=== PATIENT | female | born 1950 | race Caucasian/White ===

== ENCOUNTER 2018-01-13 19:17 | Observation (INO) | payer MEDICARE, OTHER ==
[~2018-01-13] VITALS: Ht 162.6 cm; Wt 59.9 kg
--- OUTSIDE RECORDS SUMMARY | 2018-01-13 19:20 | XMS REPORT | Summary of Care ---
Author Organization Unknown Address Unknown Phone Unavailable Encounter [facility](MARLI) [phone] Date(s): 06/19/13 - 07/18/13 [facility] Discharge Disposition: Home Physician Attending: Louis Holcomb DPM Reason for Visit LEFT FOOT/ANKLE SX 03/15/13 Problem List No data available for this section Allergies, Adverse Reactions, Alerts Substance Reaction Severity Status NKDA Active Medications No data available for this section Medications Administered During Your Visit No data available for this section Immunizations No data available for this section
--- OUTSIDE RECORDS SUMMARY | 2018-01-13 19:20 | XMS REPORT | Clinical Summary ---
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 Last Filed Vital Signs Not on file Plan of Treatment Health Maintenance Due Date Last Done Comments BREAST CANCER SCREENING 2000 COLON CANCER SCREENING 2000 SHINGRIX VACCINE (1 of 2) 2000 ZOSTER VACCINE 2010 PNEUMOCOCCAL 09/16/2015 POLYSACCHARIDE VACCINE AGE 65 AND OVER PNEUMOCOCCAL-13 09/16/2015 INFLUENZA VACCINE 09/21/2017 Results Not on fileafter 01/12/2017 Insurance Payer Benefit Subscriber ID Type Phone Address Plan / Group AETNA MEDICARE AETNA xxxxxxxx HMO MEDICARE HMO/PPO [facility] (Home) [place] [address] Advance Directives Patient has advance care planning documents on file. For more information, garcia connor contact: León Freeman [address] [place] [address]
--- OUTSIDE RECORDS SUMMARY | 2018-01-13 19:20 | XMS REPORT | Continuity of Care Document ---
Author Author [facility] Interface Address Unknown Phone Unavailable Problems Problem Status Onset Date Classification Date Reported Comments Source Other abnormal and inconclusive findings on diagnostic imaging of breast 05/18/2017 08/17/2017 [facility]'s Encounter for screening mammogram for malignant neoplasm of breast 05/07/2017 08/08/2017 [facility] Dis[facility] Diagnosis: Chest pain, atypical 11/17/2015 11/20/2015 [facility] Discharge Diagnosis: Lung nodule 11/17/2015 11/20/2015 [facility] ABNORMAL EKG Active 11/16/2015 [facility] [id number],HALLUX INTERPHALANGEAL Active 12/24/2013 [facility] Bunion Active Problem 08/17/2017 [facility]'s,[facility] HTN (<span ID="[id number]">Confirmed</span>) Resolved Problem 08/17/2017 [facility] Hypothyroid Active Problem 08/17/2017 [facility] Encounter for screening for osteoporosis 08/08/2017 [facility] Other specified disorders of bone density and structure, unspecified site 08/08/2017 [facility] Asymptomatic menopausal state 08/08/2017 [facility]'s LEFT FOOT/ANKLE SX 03/15/13 Active [facility] PAIN Active [facility] Medications Medication Details Route Status Patient Instructions Ordering Provider Order Date Source tramadol hydrochloride 50 MG Oral Tablet [Ultram] 50 mg=1 tab, PO, Q4H, PRN pain, X 3 day, # 20 tab, 0 Refill(s) Active 11/17/2015 [facility] Aspirin 324 mg, Route: PO, ONCE, Dosing Weight 56.818, kg, Priority: STAT, Start date: 11/17/15 9:07:00 CDT, Stop date: 11/17/15 9:07:00 CDT Inactive 11/17/2015 [facility] Morphine 2 mg, Route: IVP, ONCE, Dosing Weight 56.818, kg, Priority: STAT, Start date: 11/17/15 9:07:00 CDT, Stop date: 11/17/15 9:07:00 CDT Inactive 11/17/2015 [facility] Saline Flush 0.9% 10 mL, Route: IVP, Drug Form: INJ, Dosing Weight 56.818, kg, PRN, PRN Line Flush, Start date: 11/17/15 9:07:00 CDT, Duration: 30 day, Stop date: 12/17/15 9:06:00 CDTNotes: (Same as: BD Posiflush) Inactive 11/17/2015 [facility] Ondansetron 4 mg, Route: IVP, ONCE, Dosing Weight 56.818, kg, Priority: STAT, Start date: 11/17/15 9:07:00 CDT, Stop date: 11/17/15 9:07:00 CDT Inactive 11/17/2015 [facility] Acetaminophen 650 mg, Route: PO, Drug form: TAB, Q4H, Dosing Weight 56.818, kg, PRN Pain 1-3/Temp > 100.4 F, Start date: 01/30/14 14:05:00, Duration: 30 day, Stop date: 03/01/14 14:04:00 Inactive 01/30/2014 [facility] Ibuprofen 800 mg, Route: PO, Drug form: TAB, Q8H, Dosing Weight 56.818, kg, PRN Pain Score 1-3, Start date: 01/30/14 14:05:00, Duration: 30 day, Stop date: 03/01/14 14:04:00 Inactive 01/30/2014 [facility] Acetaminophen 325 MG / Hydrocodone Bitartrate 10 MG Oral Tablet 1 tab, Route: PO, Dosing Weight 56.818, kg, Q4H, PRN Pain Score 4-6, Start date: 01/30/14 14:05:00, Duration: 30 day, Stop date: 03/01/14 14:04:00 Inactive 01/30/2014 [facility] Naloxone 0.04 mg, 0.1 mL, Route: IVP, Drug form: INJ, Q2MIN, Dosing Weight 56.818, kg, PRN Narcotic Reversal, Start date: 01/30/14 12:55:00, Duration: 8 doses or times, Stop date: Limited # of timesNotes: Same as Narcan Inactive 01/30/2014 [facility] Diphenhydramine 12.5 mg, 0.25 mL, Route: IVP, Drug form: INJ, Q6H, Dosing Weight 56.818, kg, PRN Itching, Start date: 01/30/14 12:55:00, Duration: 30 day, Stop date: 03/01/14 12:54:00Notes: (Same as: Benadryl) Inactive 01/30/2014 [facility] Ondansetron 4 mg, 2 mL, Route: IVP, Drug form: INJ, ONCE, Dosing Weight 56.818, kg, PRN Nausea & Vomiting, Start date: 01/30/14 12:55:00Notes: (Same as: Zofran) Inactive 01/30/2014 [facility] Morphine 2 mg, 0.25 mL, Route: IVP, Drug form: INJ, Q5Min, Dosing Weight 56.818, kg, PRN Pain Score 4-6, Start date: 01/30/14 12:55:00, Duration: 5 doses or times, Stop date: Limited # of timesNotes: (Same as: MORPhine Sulfate) Inactive 01/30/2014 [facility] Hydromorphone 0.5 mg, 0.25 mL, Route: IVP, Drug form: INJ, Q5Min, Dosing Weight 56.818, kg, PRN Pain Score 7-10, Start date: 01/30/14 12:55:00, Duration: 4 doses or times, Stop date: Limited # of timesNotes: (Same as: Dilaudid) Inactive 01/30/2014 [facility] Flumazenil 0.2 mg, 2 mL, Route: IVP, Drug form: INJ, PRN, Dosing Weight 56.818, kg, PRN Benzodiazepine Reversal, Initial dose, Start date: 01/30/14 12:55:00, Duration: 30 day, Stop date: 03/01/14 12:54:00Notes: (Same as: Romazicon) Inactive 01/30/2014 [facility] Hydralazine 10 mg, 0.5 mL, Route: IVP, Drug form: INJ, Q20Min, Dosing Weight 56.818, kg, PRN Elevated BP, Start date: 01/30/14 12:55:00, Duration: 2 doses or times, Stop date: Limited # of timesNotes: (Same as: Apresoline) Push over 5 minutes Inactive 01/30/2014 [facility] Labetalol 10 mg, 2 mL, Route: IVP, Drug form: INJ, Q5Min, Dosing Weight 56.818, kg, PRN Elevated BP, Start date: 01/30/14 12:55:00, Duration: 5 doses or times, Stop date: Limited # of timesNotes: (Same as: Normod yne, Trandate) Push over 2 minutes Give bolus over 2-3 minutes. Inactive 01/30/2014 [facility] Ancef 2 gm, Route: IVPB, ONCE, Dosing Weight 56.818, kg, Start date: 01/30/14 12:54:00, Duration: 1 doses or times, Stop date: 01/30/14 12:54:00 Inactive 01/30/2014 [facility] Lidocaine Hydrochloride 10 MG/ML Injectable Solution 0.5 mL, Route: INTRADERM, Dosing Weight 56.818, kg, ONCALL, Start date: 01/30/14 12:00:00, Duration: 1 doses or times Inactive 01/30/2014 [facility] Calcium Chloride 0.0014 MEQ/ML / Potassium Chloride 0.004 MEQ/ML / Sodium Chloride 0.103 MEQ/ML / Sodium Lactate 0.028 MEQ/ML Injectable Solution 1,000 mL, Rate: 25 ml/hr, Infuse over: 40 hr, Route: IV, Dosing Weight 56.818 kg, Total Volume: 1,000, Start date: 01/30/14 11:17:00, Duration: 30 day, Stop date: 03/01/14 11:16:00 Inactive 01/30/2014 [facility] Vitamin D 0 Refill(s) Active 01/24/2014 [facility] nature thyroid nature thyroid, Refill(s) 0 Active 01/24/2014 [facility] Allergies, Adverse Reactions, Alerts Substance Category Reaction Severity Reaction type Status Date Reported Comments Source Immunizations Immunization Date Given Site Status Last Updated Comments Source Results Order Name Results Value Reference Range Date Interpretation Comments Source Breast Complete Taz US Breast Complete Taz US COMPLETE ULTRASOUND OF BOTH BREASTS AND AXILLA: 05/11/2017 CLINICAL: R92.8 Other Abnormal And Inconclusive Findings On Diagnostic Imaging Of Breast/R92.8 Other Abnormal And Inconclusive Findings On Diagnostic Imaging Of Breast HISTORY: 66 yo female returns for further imaging evaluation of BILATERAL calcifications detected on BASELINE screening mammogram 05/02/17. No personal or family history of breast cancer. No prior breast surgeries or biopsies. Taking HRT. /R92.8 Other Abnormal And Inconclusive Findings On Diagnostic Imaging Of Breast. COMPARISON:Comparison is made to exams dated: 05/02/2017 mammogram and 05/11/2017 ultrasound - [facility]. RIGHT BREAST FINDINGS: The entire RIGHT breast was evaluated including all four quadrants, axillary tail, retroareolar region and axilla. No abnormalities that would be suspicious for malignancy were identified. Scattered subcentimeter cysts were identified. No axillary adenopathy. LEFT BREAST FINDINGS: The entire LEFT breast was evaluated including all four quadrants, axillary tail, retroareolar region and axilla. No abnormalities that would be suspicious for malignancy were identified. Scattered subcentimeter cysts were identified. No axillary adenopathy. IMPRESSION: BENIGN 1. ADDITIONAL IMAGING READ IN CONJUNCTION WITH THE BASELINE SCREENING MAMMOGRAM SHOWED FINDINGS COMPATIBLE WITH BILATERAL FIBROCYSTIC CHANGES. RECOMMENDATION: 1. SINCE THIS WAS A BASELINE, RECOMMEND A PRECAUTIONARY FOLLOW-UP BILATERAL MAMMOGRAM IN SIX MONTHS TO CONFIRM BENIGN IMPRESSION AND ASSESS STABILITY. I personally reviewed the imaging findings and recommendations with the patient. I emphasized to her to practice monthly self-examinations and to return immediately if she should note any concerning changes. Lakisha Connell M.D. sg/:05/13/2017 15:54:04 Data Management Analyst(s): Alie Lyn R.D.M.S, [facility]; Fany Garcia, [facility] letter sent: BI-RADS 3 Ultrasound BI-RADS: 2 Benign 05/11/2017 - - Read by: Lakisha Connell MD Dictated Date/time: 05/13/17 15:54 Electronically Signed by: Lakisha Connell MD 05/13/17 15:[address] [facility] Breast Mammo Diag TAZ incl CAD MA Breast Mammo Diag TAZ incl CAD MA BILATERAL DIGITAL DIAGNOSTIC MAMMOGRAM WITH CAD: 05/11/2017 CLINICAL: R92.8 Other Abnormal And Inconclusive Findings On Diagnostic Imaging Of Breast/R92.8 Other Abnormal And Inconclusive Findings On Diagnostic Imaging Of Breast HISTORY: 66 yo female returns for further imaging evaluation of BILATERAL calcifications detected on BASELINE screening mammogram 05/02/17. No personal or family history of breast cancer. No prior breast surgeries or biopsies. Taking HRT. /R92.8 Other Abnormal And Inconclusive Findings On Diagnostic Imaging Of Breast. Current study was evaluated with a Computer Aided Detection (CAD) system. COMPARISON:Comparison is made to exams dated: 05/02/2017 mammogram and 05/11/2017 ultrasound - [facility]. TECHNIQUE: Mammographic views were obtained using digital acquisition. Current study was also evaluated with a Computer Aided Detection (CAD) system. FINDINGS: The tissue of both breasts is extremely dense. This may lower the sensitivity of mammography. Bilateral magnification views and ML views show the majority of the bilateral diffuse calcifications to layer consistent with fibrocystic change. No significant masses or other findings are seen in either breast. IMPRESSION: PROBABLY BENIGN PLEASE SEE SAME DAY ULTRASOUND REPORT. Lakisha Connell M.D. sg/:05/13/2017 15:54:04 Data Management Analyst(s): Alie Lyn R.D.M.S, [facility]; Fany Garcia, [facility] letter sent: BI-RADS 3 Mammogram BI-RADS: 3 Probably benign 05/11/2017 - - Read by: Lakisha Connell MD Dictated Date/time: 05/13/17 15:54 Electronically Signed by: Lakisha Connell MD 05/13/17 15:[address] [facility] Bone Density DXA [employer] MA Bone Density DXA [employer] MA BONE DENSITY ASSESSMENT: 05/02/2017 CLINICAL DATA: Post menopausal. Taking estrogen. Taking vitamin D supplements. Encounter For Screening For Osteoporosis/Z13.820 RISK FACTORS: race. FINDINGS: Bone density evaluation was performed 05/02/2017 on the right femur neck using a Hologic unit. The BMD average for the exam is 0.657 g/cm2. The T-score is - 1.70 and the Z-score is -0.10. These values indicate 98.0% for age-matched controls. This matches the World Health Organization's criteria for osteopenia and places the patient at a medium risk for fracture. An additional bone density evaluation was performed 05/02/2017 on the left femur neck using a Hologic unit. The BMD average for the exam is 0.625 g/cm2. The T- score is -2.00 and the Z-score is -0.40. These values indicate 93.0% for age- matched controls. This matches the World Health Organization's criteria for osteopenia and places the patient at a medium risk for fracture. An additional bone density evaluation was performed 05/02/2017 on the right hip using a Hologic unit. The BMD average for the exam is 0.755 g/cm2. The T-score is -1.50 and the Z-score is -0.20. These values indicate 97.0% for age-matched controls. This matches the World Health Organization's criteria for osteopenia and places the patient at a medium risk for fracture. An additional bone density evaluation was performed 05/02/2017 on the left hip using a Hologic unit. The BMD average for the exam is 0.754 g/cm2. The T-score is -1.50 and the Z-score is -0.20. These values indicate 96.0% for age-matched controls. This matches the World Health Organization's criteria for osteopenia and places the patient at a medium risk for fracture. An additional bone density evaluation was performed 05/02/2017 on the AP L1-L4 region of spine using a Hologic unit. The BMD average for the exam is 0.956 g/cm2. The T-score is -0.80 and the Z-score is 1.00. These values indicate 114.0% for age-matched controls. This matches the World Health Organization's criteria for normal bone density and places the patient within normal limits of fracture risk. IMPRESSION: OSTEOPENIA Patient is at medium risk for fracture. This exam was interpreted at [id number] for [facility]. Lakisha solano/mary:05/02/2017 17:52:17 Data Management Analyst(s): Sierra MCLEAN(R)(M), [facility] 05/02/2017 - - Read by: Lakisha Connell MD Dictated Date/time: 05/02/17 17:52 Electronically Signed by: Lakisha Connell MD 05/02/17 17:[address] [facility] Breast Mammo Scrn TAZ incl CAD MA Breast Mammo Scrn TAZ incl CAD MA BILATERAL FIRST EVER DIGITAL SCREENING MAMMOGRAM WITH CAD: 05/02/2017 CLINICAL: Routine/Screen. Current study was evaluated with a Computer Aided Detection (CAD) system. COMPARISON:No prior exams were available for comparison. BASELINE TECHNIQUE: Mammographic views were obtained using digital acquisition. Current study was also evaluated with a Computer Aided Detection (CAD) system. FINDINGS: The tissue of both breasts is extremely dense. This may lower the sensitivity of mammography. There are diffuse calcifications in both breasts. There are benign scattered densities in both breasts. No significant masses, calcifications, or other findings are seen in either breast. IMPRESSION: INCOMPLETE: NEEDS ADDITIONAL IMAGING EVALUATION The diffuse calcifications in both breasts are indeterminate. Bilateral mammographic additional views and bilateral ultrasound are recommended ... bilateral CC mag, bilater ML mag. This exam was interpreted at [id number] for [facility]. Navarro Healy M.D. mt/:05/04/2017 16:49:47 Data Management Analyst(s): Sierra Nicole RT(R)(M), [facility] letter sent: BI-RADS 0 Mammogram BI-RADS: 0 Indeterminate 05/02/2017 - - Read by: Navarro Healy MD Dictated Date/time: 05/04/17 16:49 Electronically Signed by: Navarro Healy MD 05/04/17 16:[address] [facility] CARDIAC ENZYMES Total CK 50 unit/L 12 - 191 11/17/2015 [facility] CARDIAC ENZYMES CK MB 1.3 ng/mL 0.5 - 3.6 11/17/2015 [facility] CARDIAC ENZYMES Troponin-I null 0.00 - 0.40 11/17/2015 [facility] CARDIAC ENZYMES BNP 55 pg/mL <=100 pg/mL 11/17/2015 [facility] CARDIAC ENZYMES CK MB Index 2.6 0.0 - 2.5 11/17/2015 [facility] CHEM PANEL eGFR 88 mL/min/1.73m2 11/17/2015 Result Comment: The eGFR is calculated using the CKD-EPI formula. In most young, healthy individuals the eGFR will be >90 mL/min/1.73m2. The eGFR declines with age. An eGFR of 60-89 may be normal in some populations, particularly the elderly, for whom the CKD-EPI formula has not been extensively validated. Use of the eGFR is not recommended in the following populations: Individuals with unstable creatinine concentrations, including patients and those with serious co-morbid conditions. Patients with extremes in muscle mass or diet. The data above are obtained from the National Kidney Disease Education Program (NKDEP) which additionally recommends that when the eGFR is used in patients with extremes of body mass index for purposes of drug dosing, the eGFR should be multiplied by the estimated BMI. [facility] CHEM PANEL A/G Ratio 1.0 0.7 - 1.6 11/17/2015 [facility] CHEM PANEL Bili Total 0.6 mg/dL 0.2 - 1.3 11/17/2015 [facility] CHEM PANEL AGAP 8.9 meq/L 10.0 - 20.0 11/17/2015 [facility] CHEM PANEL B/C Ratio 15 6 - 25 11/17/2015 [facility] CHEM PANEL Globulin 3.2 g/dL 2.7 - 4.2 11/17/2015 [facility] CHEM PANEL ALT 19 unit/L 0 - 65 11/17/2015 [facility] CHEM PANEL AST 12 unit/L 0 - 37 11/17/2015 [facility] CHEM PANEL Alk Phos 48 unit/L 39 - 136 11/17/2015 [facility] CHEM PANEL Potassium Lvl 3.9 meq/L 3.5 - 5.1 11/17/2015 [facility] CHEM PANEL Albumin Lvl 3.1 g/dL 3.5 - 5.0 11/17/2015 [facility] CHEM PANEL Total Protein 6.3 g/dL 6.4 - 8.4 11/17/2015 [facility] CHEM PANEL Calcium Lvl 8.4 mg/dL 8.5 - 10.5 11/17/2015 [facility] CHEM PANEL Chloride Lvl 106 meq/L 95 - 109 11/17/2015 [facility] CHEM PANEL CO2 27 meq/L 24 - 32 11/17/2015 [facility] CHEM PANEL Creatinine Lvl 0.72 mg/dL 0.50 - 1.40 11/17/2015 [facility] CHEM PANEL Sodium Lvl 138 meq/L 135 - 145 11/17/2015 [facility] CHEM PANEL Glucose Lvl 91 mg/dL 70 - 99 11/17/2015 [facility] CHEM PANEL BUN 11 mg/dL 7 - 22 11/17/2015 [facility] MCHC 34.7 g/dL 32.0 - 36.0 11/17/2015 [facility] RDW 13.1 % 11.5 - 14.5 11/17/2015 [facility] MCH 31.0 pg 27.0 - 31.0 11/17/2015 [facility] Platelet 191 K/CMM 133 - 450 11/17/2015 [facility] Hct 36.1 % 36.0 - 48.0 11/17/2015 [facility] MCV 89.3 fL 80.0 - 98.0 11/17/2015 [facility] MPV 9.3 fL 7.4 - 10.4 11/17/2015 [facility] WBC 9.9 K/CMM 3.7 - 10.4 11/17/2015 [facility] RBC 4.05 M/CMM 4.20 - 5.40 11/17/2015 [facility] Hgb 12.5 g/dL 12.0 - 16.0 11/17/2015 [facility] Lymphocytes # 1.6 K/CMM 1.0 - 5.5 11/17/2015 [facility] Monocytes # 0.9 K/CMM 0.0 - 0.8 11/17/2015 [facility] Segs-Bands # 7.2 K/CMM 1.5 - 8.1 11/17/2015 [facility] Basophils # 0.1 K/CMM 0.0 - 0.2 11/17/2015 [facility] Lymphocytes 16.4 % 20.0 - 40.0 11/17/2015 [facility] HEMATOLOGY Eosinophils 0.2 % 0.0 - 4.0 11/17/2015 [facility] HEMATOLOGY Basophils 0.6 % 0.0 - 1.0 11/17/2015 [facility] Monocytes 9.4 % 2.0 - 12.0 11/17/2015 [facility] Segs 73.4 % 45.0 - 75.0 11/17/2015 [facility] Chest 1view DX Chest 1view DX Chest 1view DX CLINICAL HISTORY:Chest pain COMPARISON: 01/16/2006 FINDINGS: Limited AP portable study. SUPPORT DEVICES: none LUNGS: Lungs are reasonably well inflated. Question small nodule right lung base medially approximately 13 mm in size. No opacities or any significant effusion. No pneumothorax is evident. CARDIOVASCULAR: Cardiac silhouette size is within normal limits. No pulmonary edema. MEDIASTINUM/TSERING: Trachea is midline. No contour abnormality is noted. BONE AND SOFT TISSUES: No significant abnormality is evident. Multiple EKG leads and other wires project over the patient's chest. IMPRESSION: No acute abnormality is noted in the chest. Question small nodule medial aspect of right lung base. Nonemergent contrast CT of chest and pulmonary follow-up is recommended. SL: [id number] 11/17/2015 - - Read by: Arnulfo Garcia MD Dictated Date/time: 11/17/15 09:41 Electronically Signed by: Arnulfo Garcia MD 11/17/15 09:42 FINAL REPORT [facility] [employer] [facility] eGFR 92 mL/min/1.73m2 01/24/2014 1Result Comment: The eGFR is calculated using the CKD-EPI formula. In most young, healthy individuals the eGFR will be >90 mL/min/1.73m2. The eGFR declines with age. An eGFR of 60-89 may be normal in some populations, particularly the elderly, for whom the CKD-EPI formula has not been extensively validated. Use of the eGFR is not recommended in the following populations: Individuals with unstable creatinine concentrations, including patients and those with serious co-morbid conditions. Patients with extremes in muscle mass or diet. The data above are obtained from the National Kidney Disease Education Program (NKDEP) which additionally recommends that when the eGFR is used in patients with extremes of body mass index for purposes of drug dosing, the eGFR should be multiplied by the estimated BMI. [facility] CHEM PANEL Creatinine Lvl 0.7 mg/dL 0.5 - 1.4 01/24/2014 [facility] CHEM PANEL Calcium Lvl 9.1 mg/dL 8.5 - 10.5 01/24/2014 [facility] CHEM PANEL Sodium Lvl 140 meq/L 135 - 145 01/24/2014 [facility] CHEM PANEL Chloride Lvl 106 meq/L 95 - 109 01/24/2014 [facility] CHEM PANEL Potassium Lvl 3.9 meq/L 3.5 - 5.1 01/24/2014 [facility] CHEM PANEL BUN 13 mg/dL 7 - 22 01/24/2014 [facility] CHEM PANEL Glucose Lvl 82 mg/dL 70 - 99 01/24/2014 2Interpretive Data: Adult reference range values reflect the clinical guidelines of the [place] [employer]. [facility] CHEM PANEL CO2 28 meq/L 24 - 32 01/24/2014 [facility] CHEM PANEL AGAP 9.9 meq/L 10.0 - 20.0 01/24/2014 [facility] HEMATOLOGY RDW 12.9 % 11.5 - 14.5 01/24/2014 [facility] HEMATOLOGY MCHC 34.3 g/dL 32.0 - 36.0 01/24/[address] [facility] MCH 31.0 pg 27.0 - 31.0 01/24/2014 [facility] HEMATOLOGY MCV 90.6 fL 80.0 - 98.0 01/24/2014 [facility] HEMATOLOGY MPV 9.0 fL 7.4 - 10.4 01/24/2014 [facility] HEMATOLOGY Platelet 222 K/CMM 133 - 450 01/24/2014 [facility] HEMATOLOGY WBC 8.1 K/CMM 3.7 - 10.4 01/24/2014 [facility] HEMATOLOGY Hgb 12.8 g/dL 12.0 - 16.0 01/24/2014 [facility] HEMATOLOGY Hct 37.4 % 36.0 - 48.0 01/24/2014 [facility] HEMATOLOGY RBC 4.13 M/CMM 4.20 - 5.40 01/24/2014 [facility] HEMATOLOGY Basophils # 0.0 K/CMM 0.0 - 0.2 01/24/2014 [facility] HEMATOLOGY Eosinophils # 0.1 K/CMM 0.0 - 0.5 01/24/2014 [facility] HEMATOLOGY Lymphocytes # 2.3 K/CMM 1.0 - 5.5 01/24/2014 [facility] HEMATOLOGY Monocytes # 0.5 K/CMM 0.0 - 0.8 01/24/2014 [facility] HEMATOLOGY Basophils 0.3 % 0.0 - 1.0 01/24/2014 [facility] HEMATOLOGY Eosinophils 0.6 % 0.0 - 4.0 01/24/2014 [facility] HEMATOLOGY Segs-Bands # 5.3 K/CMM 1.5 - 8.1 01/24/2014 [facility] HEMATOLOGY Monocytes 5.9 % 2.0 - 12.0 01/24/2014 [facility] HEMATOLOGY Lymphocytes 27.9 % 20.0 - 40.0 01/24/2014 [facility] HEMATOLOGY Segs 65.3 % 45.0 - 75.0 01/24/2014 [facility] Vital Signs Vital Sign Value Date Comments Source Systolic (mm Hg) 123 11/17/2015 [facility] Diastolic (mm Hg) 73 11/17/2015 [facility] Temperature Oral (F) 97.7 F 11/17/2015 [facility] Respitory Rate 13 11/17/2015 [facility] Systolic (mm Hg) 118 11/17/2015 [facility] Diastolic (mm Hg) 82 11/17/2015 [facility] Respitory Rate 16 11/17/2015 [facility] BMI Calculated 21.16 11/17/2015 [facility] Weight 55.909 11/17/2015 [facility] Height 162.56 cm 11/17/2015 [facility] Temperature Oral (F) 97.8 F 11/17/2015 [facility] Heart Rate 85 11/17/2015 [facility] Respitory Rate 18 11/17/2015 [facility] Systolic (mm Hg) 110 11/17/2015 [facility] Diastolic (mm Hg) 67 11/17/2015 [facility] Heart Rate 60 01/30/2014 [facility] Diastolic (mm Hg) 88 01/30/2014 [facility] Respitory Rate 16 01/30/2014 [facility] Systolic (mm Hg) 149 01/30/2014 [facility] Diastolic (mm Hg) 82 01/30/2014 [facility] Respitory Rate 18 01/30/2014 [facility] Heart Rate 85 01/30/2014 [facility] Systolic (mm Hg) 130 01/30/2014 [facility] Respitory Rate 18 01/30/2014 [facility] Diastolic (mm Hg) 79 01/30/2014 [facility] Systolic (mm Hg) 138 01/30/2014 [facility] Heart Rate 93 01/30/2014 [facility] Temperature Oral (F) 98.0 F 01/30/2014 [facility] Height 162.56 cm 01/24/2014 [facility] BMI Calculated 21.5 01/24/2014 [facility] Weight 56.818 01/24/2014 [facility] Encounters Location Location Details Encounter Type Encounter Number Reason For Visit Attending Provider ADM Date DC Date Status Source [facility] OP Therapy Patients [id number] Louis Holcomb 06/19/2013 07/19/2013 [id number] [facility]2013 08/18/2013 [facility] Day [facility] [id number] [facility] 01/30/2014 01/30/2014 [facility] [id number] Carmen Healy 11/17/2015 11/17/2015 [facility] Outpatient Imaging - [facility] [id number] Germania Chowdhurytodex 05/02/2017 05/03/2017 [facility] Outpatient Imaging - [facility] [id number] Germania Chowdhurytodex 05/11/2017 05/12/2017 [facility] Procedures Procedure Code Date Perfomer Comments Source Hysterectomy [id number] 02/21/2011 [facility] Hysterectomy [id number] 02/21/2011 [facility] Hysterectomy [id number] 02/21/2011 [facility] Maxillofacial bone operation [id number] 02/21/1995 [facility] Maxillofacial bone operation [id number] 02/21/1995 [facility] Maxillofacial bone operation [id number] 02/21/1995 [facility] Tonsillectomy [id number] 02/21/1955 [facility] Tonsillectomy [id number] 02/21/1955 [facility] Tonsillectomy [id number] 02/21/1955 [facility] Foot joint operations [id number] [facility] ORIF - Open reduction and internal fixation of fracture [id number] [facility] Foot joint operations [id number] [facility] ORIF - Open reduction and internal fixation of fracture [id number] [facility] Foot joint operations [id number] [facility] ORIF - Open reduction and internal fixation of fracture [id number] [facility]
--- OUTSIDE RECORDS SUMMARY | 2018-01-13 19:20 | XMS REPORT | Summary of Care ---
Author Organization Unknown Address Unknown Phone Unavailable Encounter HQ aPblo_reji(MARLI) [id number] Date(s): 01/30/14 - 01/30/14 [facility] [address] Discharge Disposition: Home Physician Attending: Louis Holcomb DPM Physician_Referring: Louis Holcomb DPM Reason for Visit [id number],HALLUX INTERPHALANGEAL BILATERAL FEET Vital Signs 1 2 3 Most recent to oldest [Reference Range]: 162.56 cm (01/24/14 3:20 PM) Height 98.0 DegF (01/30/14 10:45 AM) Temperature Oral [96.4-99.1 DegF] 149 mmHg *HI* (01/30/14 3:15 PM) 130 mmHg (01/30/14 2:45 PM) 138 mmHg (01/30/14 2:30 PM) Systolic Blood Pressure [90-140 mmHg] 88 mmHg (01/30/14 3:15 PM) 82 mmHg (01/30/14 2:45 PM) 79 mmHg (01/30/14 2:30 PM) Diastolic Blood Pressure [60-90 mmHg] 16 BRMIN (01/30/14 3:15 PM) 18 BRMIN (01/30/14 2:45 PM) 18 BRMIN (01/30/14 2:30 PM) Respiratory Rate [14-20 BRMIN] 60 bpm (01/30/14 3:15 PM) 85 bpm (01/30/14 2:45 PM) 93 bpm (01/30/14 1:45 PM) Peripheral Pulse Rate [60-100 bpm] 56.818 kg (01/24/14 3:20 PM) Weight 21.5 m2 (01/24/14 3:20 PM) Body Mass Index Problem List Condition Effective Dates Status Health Status Informant Bunion(Confirmed) Active Hypothyroid(Confirme Active d) Allergies, Adverse Reactions, Alerts Substance Reaction Severity Status NKDA Active Medications acetaminophen 650 mg, Route: PO, Drug form: TAB, Q4H, Dosing Weight 56.818, kg, PRN Pain 1-3/T emp > 100.4 F, Start date: 01/30/14 14:05:00, Duration: 30 day, Stop date: 03/01/14 14:04:00 Start Date: 01/30/14 Stop Date: 01/30/14 Status: Discontinued acetaminophen-hydrocodone 325 mg-10 mg oral tablet 1 tab, Route: PO, Dosing Weight 56.818, kg, Q4H, PRN Pain Score 4-6, Start date: 01/30/14 14:05:00, Duration: 30 day, Stop date: 03/01/14 14:04:00 Start Date: 01/30/14 Stop Date: 01/30/14 Status: Discontinued Ancef 2 gm, Route: IVPB, ONCE, Dosing Weight 56.818, kg, Start date: 01/30/14 12:54:00 , Duration: 1 doses or times, Stop date: 01/30/14 12:54:00 Start Date: 01/30/14 Stop Date: 01/30/14 Status: Completed diphenhydrAMINE 12.5 mg, 0.25 mL, Route: IVP, Drug form: INJ, Q6H, Dosing Weight 56.818, kg, PRN Itching, Start date: 01/30/14 12:55:00, Duration: 30 day, Stop date: 03/01/14 1 2:54:00 Notes: (Same as: Benadryl) Start Date: 01/30/14 Stop Date: 01/30/14 Status: Discontinued flumazenil 0.2 mg, 2 mL, Route: IVP, Drug form: INJ, PRN, Dosing Weight 56.818, kg, PRN Anand zodiazepine Reversal, Initial dose, Start date: 01/30/14 12:55:00, Duration: 30 day, Stop date: 03/01/14 12:54:00 Notes: (Same as: Romazicon) Start Date: 01/30/14 Stop Date: 01/30/14 Status: Discontinued hydrALAZINE 10 mg, 0.5 mL, Route: IVP, Drug form: INJ, Q20Min, Dosing Weight 56.818, kg, PRN Elevated BP, Start date: 01/30/14 12:55:00, Duration: 2 doses or times, Stop da te: Limited # of times Notes: (Same as: Apresoline)Push over 5 minutes Start Date: 01/30/14 Stop Date: 01/30/14 Status: Discontinued hydromorphone 0.5 mg, 0.25 mL, Route: IVP, Drug form: INJ, Q5Min, Dosing Weight 56.818, kg, CO N Pain Score 7-10, Start date: 01/30/14 12:55:00, Duration: 4 doses or times, St op date: Limited # of times Notes: (Same as: Dilaudid) Start Date: 01/30/14 Stop Date: 01/30/14 Status: Discontinued ibuprofen 800 mg, Route: PO, Drug form: TAB, Q8H, Dosing Weight 56.818, kg, PRN Pain Score 1-3, Start date: 01/30/14 14:05:00, Duration: 30 day, Stop date: 03/01/14 14:04 :00 Start Date: 01/30/14 Stop Date: 01/30/14 Status: Discontinued labetalol 10 mg, 2 mL, Route: IVP, Drug form: INJ, Q5Min, Dosing Weight 56.818, kg, PRN El evated BP, Start date: 01/30/14 12:55:00, Duration: 5 doses or times, Stop date: Limited # of times Notes: (Same as: Normodyne, Trandate)Push over 2 minutes Give bolus over 2-3 mi nutes. Start Date: 01/30/14 Stop Date: 01/30/14 Status: Discontinued Lactated Ringers Injection IV 1,000 mL 1,000 mL, Rate: 25 ml/hr, Infuse over: 40 hr, Route: IV, Dosing Weight 56.818 kg , Total Volume: 1,000, Start date: 01/30/14 11:17:00, Duration: 30 day, Stop jayda e: 03/01/14 11:16:00 Start Date: 01/30/14 Stop Date: 01/30/14 Status: Discontinued lidocaine 1% 0.5 mL, Route: INTRADERM, Dosing Weight 56.818, kg, ONCALL, Start date: 01/30/14 12:00:00, Duration: 1 doses or times Start Date: 01/30/14 Stop Date: 01/30/14 Status: Completed morphine Sulfate 2 mg, 0.25 mL, Route: IVP, Drug form: INJ, Q5Min, Dosing Weight 56.818, kg, PRN Pain Score 4-6, Start date: 01/30/14 12:55:00, Duration: 5 doses or times, Stop date: Limited # of times Notes: (Same as: MORPhine Sulfate) Start Date: 01/30/14 Stop Date: 01/30/14 Status: Discontinued naloxone 0.04 mg, 0.1 mL, Route: IVP, Drug form: INJ, Q2MIN, Dosing Weight 56.818, kg, CO N Narcotic Reversal, Start date: 01/30/14 12:55:00, Duration: 8 doses or times, Stop date: Limited # of times Notes: Same as Narcan Start Date: 01/30/14 Stop Date: 01/30/14 Status: Discontinued nature thyroid nature thyroid, Refill(s) 0 Start Date: 01/24/14 Status: Ordered ondansetron 4 mg, 2 mL, Route: IVP, Drug form: INJ, ONCE, Dosing Weight 56.818, kg, PRN Naus ea & Vomiting, Start date: 01/30/14 12:55:00 Notes: (Same as: Zofran) Start Date: 01/30/14 Stop Date: 01/30/14 Status: Discontinued Vitamin D 0 Refill(s) Start Date: 01/24/14 Status: Ordered Results ELECTROLYTES Most recent to 1 oldest [Reference Range]: Sodium Lvl [135-145 140 mEq/L mEq/L] (01/24/14 3:52 PM) Potassium Lvl 3.9 mEq/L [3.5-5.1 mEq/L] (01/24/14 3:52 PM) Chloride Lvl [95-109 106 mEq/L mEq/L] (01/24/14 3:52 PM) CO2 [24-32 mEq/L] 28 mEq/L (01/24/14 3:52 PM) AGAP [10.0-20.0 9.9 mEq/L mEq/L] *LOW* (01/24/14 3:52 PM) CHEM PANEL Most recent to 1 oldest [Reference Range]: Creatinine Lvl 0.7 mg/dL [0.5-1.4 mg/dL] (01/24/14 3:52 PM) eGFR 92 mL/min/1.73m2 1 *NA* (01/24/14 3:52 PM) BUN [7-22 mg/dL] 13 mg/dL (01/24/14 3:52 PM) Glucose Lvl [70-99 82 mg/dL 2 mg/dL] (01/24/14 3:52 PM) Calcium Lvl 9.1 mg/dL [8.5-10.5 mg/dL] (01/24/14 3:52 PM) 1Result Comment: The eGFR is calculated using [...] from the National Kidney Disease Education Program ( NKDEP) which additionally recommends that when the eGFR is used in patients with extremes of body mass index for purposes of drug dosing, the eGFR should be mul tiplied by the estimated BMI. 2Interpretive Data: Adult reference range values reflect the clinical guidelines of the [place] [employer]. HEMATOLOGY Most recent to 1 oldest [Reference Range]: WBC [3.7-10.4 K/CMM] 8.1 K/CMM (01/24/14 3:52 PM) RBC [4.20-5.40 4.13 M/CMM M/CMM] *LOW* (01/24/14 3:52 PM) Hgb [12.0-16.0 g/dL] 12.8 g/dL (01/24/14 3:52 PM) Hct [36.0-48.0 %] 37.4 % (01/24/14 3:52 PM) MCV [80.0-98.0 fL] 90.6 fL (01/24/14 3:52 PM) MCH [27.0-31.0 pg] 31.0 pg (01/24/14 3:52 PM) MCHC [32.0-36.0 34.3 g/dL g/dL] (01/24/14 3:52 PM) RDW [11.5-14.5 %] 12.9 % (01/24/14 3:52 PM) Platelet [133-450 222 K/CMM K/CMM] (01/24/14 3:52 PM) MPV [7.4-10.4 fL] 9.0 fL (01/24/14 3:52 PM) Segs [45.0-75.0 %] 65.3 % (01/24/14 3:52 PM) Lymphocytes 27.9 % [20.0-40.0 %] (01/24/14 3:52 PM) Monocytes [2.0-12.0 5.9 % %] (01/24/14 3:52 PM) Eosinophils [0.0-4.0 0.6 % %] (01/24/14 3:52 PM) Basophils [0.0-1.0 0.3 % %] (01/24/14 3:52 PM) Segs-Bands # 5.3 K/CMM [1.5-8.1 K/CMM] (01/24/14 3:52 PM) Lymphocytes # 2.3 K/CMM [1.0-5.5 K/CMM] (01/24/14 3:52 PM) Monocytes # [0.0-0.8 0.5 K/CMM K/CMM] (01/24/14 3:52 PM) Eosinophils # 0.1 K/CMM [0.0-0.5 K/CMM] (01/24/14 3:52 PM) Basophils # [0.0-0.2 0.0 K/CMM K/CMM] (01/24/14 3:52 PM) Medications Administered During Your Visit No data available for this section Immunizations No data available for this section Procedures Procedure Type Body Site Date of Procedure Related Diagnosis Foot joint operations Hysterectomy 2012 Maxillofacial bone 1996 operation ORIF - Open reduction and internal fixation of fracture Tonsillectomy 1955 Social History Social History Type Response Smoking Status Never smoker, Exposure to Tobacco Smoke None, Cigarette Smoking Last 365 Days No, Reg Smoking Cessation Counseling No
--- OUTSIDE RECORDS SUMMARY | 2018-01-13 19:20 | XMS REPORT | Summary of Care ---
Author Organization Unknown Address Unknown Phone Unavailable Encounter HQ Catier_reji(MARLI) [id number] Date(s): 07/19/13 - 08/17/13 [facility] Discharge Disposition: Home Physician Attending: Louis Holcomb DPM Reason for Visit PAIN Problem List No data available for this section Allergies, Adverse Reactions, Alerts Substance Reaction Severity Status NKDA Active Medications No data available for this section Medications Administered During Your Visit No data available for this section Immunizations No data available for this section
--- OUTSIDE RECORDS SUMMARY | 2018-01-13 19:21 | XMS REPORT | Summary of Care ---
Author Author [facility] Address Unknown Phone Unavailable Encounter HQ Francisca(FIN) [id number] Date(s): 05/02/17 - 05/02/17 [facility] [address] [place] [phone] Encounter Diagnosis Encounter for screening mammogram for malignant neoplasm of breast (Final) - 05/06/17 Encounter for screening for osteoporosis (Final) - Other specified disorders of bone density and structure, unspecified site (Final) - Asymptomatic menopausal state (Final) - Discharge Disposition: Home or Self Care Attending Physician: Germania Tenorio MD Vital Signs No data available for this section Problem List Condition Effective Dates Status Health Status Informant Bunion(Confirmed) Active HTN Resolved (hypertension)(Confi rmed) Hypothyroid(Confirme Active d) Allergies, Adverse Reactions, Alerts Substance Reaction Severity Status NKDA Active Medications No data available for this section Results No data available for this section Immunizations No data available for this section Procedures Procedure Date Related Diagnosis Body Site Status Hysterectomy 2011 Completed Maxillofacial bone operation 1995 Completed Tonsillectomy 1955 Completed Foot joint operations Completed ORIF - Open reduction and internal fixation Completed of fracture Social History Social History Type Response Smoking Status Never smoker; Exposure to Tobacco Smoke None; Cigarette Smoking Last 365 Days No; Reg Smoking Cessation Counseling No entered on: 11/17/15 Assessment and Plan No data available for this section
--- OUTSIDE RECORDS SUMMARY | 2018-01-13 19:21 | XMS REPORT | Summary of Care ---
Author Author [facility] Organization [facility] Address Unknown Phone Unavailable Encounter ALANNAH Espinosa(MARLI) [id number] Date(s): 11/17/15 - 11/17/15 [facility] [address] [place] [address]- Discharge Diagnosis: Chest pain, atypical Discharge Diagnosis: Lung nodule Discharge Disposition: Home or Self Care Attending Physician: Carmen Healy MD Vital Signs 1 2 3 Most recent to oldest [Reference Range]: 162.56 cm (11/17/15 9:05 AM) Height 97.7 DegF (11/17/15 11:05 AM) 97.8 DegF (11/17/15 9:05 AM) Temperature Oral [96.4-99.1 DegF] 123/73 mmHg (11/17/15 11:05 AM) 118/82 mmHg (11/17/15 10:20 AM) 110/67 mmHg (11/17/15 9:05 AM) Blood Pressure [90-140/60-90 mmHg] 13 BRMIN *LOW* (11/17/15 11:05 AM) 16 BRMIN (11/17/15 10:20 AM) 18 BRMIN (11/17/15 9:05 AM) Respiratory Rate [14-20 BRMIN] 85 bpm (11/17/15 9:05 AM) Peripheral Pulse Rate [60-100 bpm] 55.909 kg (11/17/15 9:05 AM) Weight 21.16 m2 (11/17/15 9:05 AM) Body Mass Index Problem List Condition Effective Dates Status Health Status Informant Bunion(Confirmed) Active HTN Resolved (hypertension)(Confi rmed) Hypothyroid(Confirme Active d) Allergies, Adverse Reactions, Alerts Substance Reaction Severity Status NKDA Active Medications aspirin 324 mg, Route: PO, ONCE, Dosing Weight 56.818, kg, Priority: STAT, Start date: 0 11/17/15 9:07:00 CDT, Stop date: 11/17/15 9:07:00 CDT Start Date: 11/17/15 Stop Date: 11/17/15 Status: Completed morphine Sulfate 2 mg, Route: IVP, ONCE, Dosing Weight 56.818, kg, Priority: STAT, Start date: 9:07:00 CDT, Stop date: 11/17/15 9:07:00 CDT Start Date: 11/17/15 Stop Date: 11/17/15 Status: Completed ondansetron 4 mg, Route: IVP, ONCE, Dosing Weight 56.818, kg, Priority: STAT, Start date: 9:07:00 CDT, Stop date: 11/17/15 9:07:00 CDT Start Date: 11/17/15 Stop Date: 11/17/15 Status: Completed Saline Flush 0.9% 10 mL, Route: IVP, Drug Form: INJ, Dosing Weight 56.818, kg, PRN, PRN Line Flush , Start date: 11/17/15 9:07:00 CDT, Duration: 30 day, Stop date: 12/17/15 9:06:0 0 CDT Notes: (Same as: BD Posiflush) Start Date: 11/17/15 Stop Date: 11/17/15 Status: Discontinued Ultram 50 mg oral tablet 50 mg=1 tab, PO, Q4H, PRN pain, X 3 day, # 20 tab, 0 Refill(s) Start Date: 11/17/15 Stop Date: 11/20/15 Status: Ordered Results ELECTROLYTES Most recent to 1 oldest [Reference Range]: Sodium Lvl [135-145 138 mEq/L mEq/L] (11/17/15 9:15 AM) Potassium Lvl 3.9 mEq/L [3.5-5.1 mEq/L] (11/17/15 9:15 AM) Chloride Lvl [95-109 106 mEq/L mEq/L] (11/17/15 9:15 AM) CO2 [24-32 mEq/L] 27 mEq/L (11/17/15 9:15 AM) AGAP [10.0-20.0 8.9 mEq/L mEq/L] *LOW* (11/17/15 9:15 AM) CHEM PANEL Most recent to 1 oldest [Reference Range]: Creatinine Lvl 0.72 mg/dL [0.50-1.40 mg/dL] (11/17/15 9:15 AM) eGFR 88 mL/min/1.73m2 1 *NA* (11/17/15 9:15 AM) BUN [7-22 mg/dL] 11 mg/dL (11/17/15 9:15 AM) B/C Ratio [6-25] 15 (11/17/15 9:15 AM) Glucose Lvl [70-99 91 mg/dL mg/dL] (11/17/15 9:15 AM) Total Protein 6.3 g/dL [6.4-8.4 g/dL] *LOW* (11/17/15 9:15 AM) Albumin Lvl [3.5-5.0 3.1 g/dL g/dL] *LOW* (11/17/15 9:15 AM) Globulin [2.7-4.2 3.2 g/dL g/dL] (11/17/15 9:15 AM) A/G Ratio [0.7-1.6] 1.0 (11/17/15 9:15 AM) Calcium Lvl 8.4 mg/dL [8.5-10.5 mg/dL] *LOW* (11/17/15 9:15 AM) ALT [0-65 unit/L] 19 unit/L (11/17/15 9:15 AM) AST [0-37 unit/L] 12 unit/L (11/17/15 9:15 AM) Alk Phos [39-136 48 unit/L unit/L] (11/17/15 9:15 AM) Bili Total [0.2-1.3 0.6 mg/dL mg/dL] (11/17/15 9:15 AM) 1Result Comment: The eGFR is calculated using [...] be mul tiplied by the estimated BMI. CARDIAC ENZYMES Most recent to 1 oldest [Reference Range]: Total CK [12-191 50 unit/L unit/L] (11/17/15 9:15 AM) CK MB [0.5-3.6 1.3 ng/mL ng/mL] (11/17/15 9:15 AM) CK MB Index 2.6 [0.0-2.5] *HI* (11/17/15 9:15 AM) Troponin-I <0.02 ng/mL [0.00-0.40 ng/mL] (11/17/15 9:15 AM) BNP [<=100 pg/mL] 55 pg/mL (11/17/15 9:15 AM) HEMATOLOGY Most recent to 1 oldest [Reference Range]: WBC [3.7-10.4 K/CMM] 9.9 K/CMM (11/17/15 9:15 AM) RBC [4.20-5.40 4.05 M/CMM M/CMM] *LOW* (11/17/15 9:15 AM) Hgb [12.0-16.0 g/dL] 12.5 g/dL (11/17/15 9:15 AM) Hct [36.0-48.0 %] 36.1 % (11/17/15 9:15 AM) MCV [80.0-98.0 fL] 89.3 fL (11/17/15 9:15 AM) MCH [27.0-31.0 pg] 31.0 pg (11/17/15 9:15 AM) MCHC [32.0-36.0 34.7 g/dL g/dL] (11/17/15 9:15 AM) RDW [11.5-14.5 %] 13.1 % (11/17/15 9:15 AM) Platelet [133-450 191 K/CMM K/CMM] (11/17/15 9:15 AM) MPV [7.4-10.4 fL] 9.3 fL (11/17/15 9:15 AM) Segs [45.0-75.0 %] 73.4 % (11/17/15 9:15 AM) Lymphocytes 16.4 % [20.0-40.0 %] *LOW* (11/17/15 9:15 AM) Monocytes [2.0-12.0 9.4 % %] (11/17/15 9:15 AM) Eosinophils [0.0-4.0 0.2 % %] (11/17/15 9:15 AM) Basophils [0.0-1.0 0.6 % %] (11/17/15 9:15 AM) Segs-Bands # 7.2 K/CMM [1.5-8.1 K/CMM] (11/17/15 9:15 AM) Lymphocytes # 1.6 K/CMM [1.0-5.5 K/CMM] (11/17/15 9:15 AM) Monocytes # [0.0-0.8 0.9 K/CMM K/CMM] *HI* (11/17/15 9:15 AM) Basophils # [0.0-0.2 0.1 K/CMM K/CMM] (11/17/15 9:15 AM) Immunizations No data available for this section Procedures Procedure Date Related Diagnosis Body Site Hysterectomy 2011 Maxillofacial bone operation 1995 Tonsillectomy 1955 Foot joint operations ORIF - Open reduction and internal fixation of fracture Social History Social History Type Response Smoking Status Never smoker; Exposure to Tobacco Smoke None; Cigarette Smoking Last 365 Days No; Reg Smoking Cessation Counseling No Assessment and Plan No data available for this section
--- OUTSIDE RECORDS SUMMARY | 2018-01-13 19:21 | XMS REPORT | Summary of Care ---
Author Author ARMEN Membreno, ADEOLA [facility] Unknown Address Unknown Phone Unavailable Care Team Providers Care [employer] Equipment Repairer Name Role Phone ARMEN Membreno, ADEOLA Unavailable Unavailable JUSTINO Membreno, QASIM Unavailable Unavailable FLAQUITO N.PKaron, CHINTAN Unavailable Unavailable WILMAR Membreno, COMFORT Unavailable Unavailable JUSTINO ASHLEY OR, QASIM Scott Unavailable Unavailable Unavailable Unavailable Functional Status Name Dates Details Functional status health issues are not documented Status: Name Dates Details Cognitive status health issues are not documented Status: Problems Name Dates Details Osteoporosis screening (V82.81, Z13.820) Status: Active Refused influenza vaccine (V64.06, Z28.21) Status: Active Refused pneumococcal vaccination (V64.06, Z28.21) Status: Active Vitamin D deficiency (268.9, E55.9) Status: Active Abnormal mammogram (793.80, R92.8) Status: Active Vaginal discharge (623.5, N89.8) Status: Active Encounter for gynecological examination (V72.31, Z01.419) Status: Active Candidiasis of vulva and vagina (112.1, B37.3) Status: Active Post menopausal problems (627.9, N95.9) Status: Active Hot flashes, menopausal (627.2, N95.1) Status: Active Atrophic vulvovaginitis (627.3, N95.2) Status: Active Benign essential hypertension (401.1, I10) Status: Active Adult onset hypothyroidism (244.8, E03.8) Status: Active No vaccination-pt refuse (V64.06, Z28.21) Status: Active Abnormal CT lung screening (793.2, R91.8) Status: Active Cervicalgia (723.1, M54.2) Status: Active Zoster (053.9, B02.9) Status: Active Vesicular rash (782.1, R23.8) Status: Active Chronic pain in right foot (729.5, M79.671) Status: Active Dry eye (375.15, H04.129) Status: Active Hallux rigidus of right foot (735.2, M20.21) Status: Active Osteophyte of left foot (726.79, M25.775) Status: Active Medications Name Dates Details Nature-Throid 65 MG Oral Tablet TAKE 1 TABLET BY MOUTH EVERY MORNING BEFORE BREAKFAST ON EMPTY STOMACH Quantity: 90 QASIM BADILLO M.D. Active Estradiol Valerate 20 MG/ML Intramuscular Oil INJECT 1ML INTRAMUSCULARLY EVERY 4 WEEKS. * Quantity: 5 Refills: 2 MARY URBAN M.D. * Start : 06-Jun-2017 Active TraMADol HCl - 50 MG Oral Tablet 1 tablet PRN * Refills: 0 Active Gabapentin 100 MG Oral Capsule Take 1 tab at night for a week then increase to 2 tabs at HS. * Quantity: 30 Refills: 1 HUDDLESTON N.P., CHINTAN * Start : 07-Nov-2017 Active Allergies and Adverse Reactions Name Dates Details No Known Drug Allergies (Allergy) Status: Active Past Medical History Name Dates Details History of Thyroid disease (246.9, E07.9) Status: Resolved Procedures Procedure Dates Details History of Hysterectomy Completed Immunization Name Dates Details Immunizations not documented Social History Name Dates Details - Status: Name Dates Details Never smoker Never smoker Vital Signs Date Test Result Details No Known Vitals to report Results Date Description Value Details [id number] [U] XR FOOT MIN 3 VWS BILATERAL XR FOOT MIN 3 VWS BILATERAL Images acquired, not reported on this accession number. Plan of Care Name Dates Details Planned Observations Planned Goals not documented Interventions Provided Labs/Procedures/Imaging* [U] XR FOOT MIN 3 VWS BILATERAL; Done: 19 Dec 2017 Instructions Name Dates Details Instructions not documented Encounters Appointment; QASIM BADILLO M.D. Encounter Diagnosis: Problem not documented On: 19-Apr-2017 9:45 Appointment; DAYA HUYNH M.D. Encounter Diagnosis: Problem not documented On: 25-May-2017 14:00 Appointment; MARY URBAN M.D. Encounter Diagnosis: Problem not documented On: 25-May-2017 14:00 Appointment; QASIM BADILLO M.D. Encounter Diagnosis: Problem not documented On: 08-Aug-2017 14:15 Appointment; ROBERT SHERIFF M.D. Encounter Diagnosis: Problem not documented On: 28-Oct-2017 16:00 Appointment; CHINTAN HUDDLESTON NP Encounter Diagnosis: Problem not documented On: 07-Nov-2017 8:30 Appointment; ADEOLA AYERS M.D. Encounter Diagnosis: Problem not documented On: 19-Dec-2017 10:30
--- OUTSIDE RECORDS SUMMARY | 2018-01-13 19:21 | XMS REPORT | Summary of Care ---
Author Author [facility] Outpatient Imaging [facility] Outpatient Imaging [facility] Address Unknown Phone Unavailable Encounter HQ Francisca(FIN) [id number] Date(s): 05/11/17 - 05/11/17 [facility] Outpatient Imaging [facility] [address] [place] [phone] Encounter Diagnosis Other abnormal and inconclusive findings on diagnostic imaging of breast (Final) - 05/17/17 Discharge Disposition: Home or Self Care Attending [...]
[2018-01-13] MEDS ORDERED: ASPIRIN 81 MG CHEW TAB PO ONE ×2 (19:30→22:30)
[2018-01-13] MEDS ORDERED: ASPIRIN 325 MG TAB ONE (19:34)
[2018-01-13] MEDS ORDERED: NITROGLYCERIN 2% OINT 1 GM PKT ONE (19:35)
[2018-01-13 19:44] LABS: BASOPHILS % 0.1 % (0.0-1.0); EOSINOPHILS % 0.2 % (0.0-6.0); HEMATOCRIT 37.1 % (34.2-44.1); HEMOGLOBIN 12.5 g/dL (12.0-16.0); LYMPHOCYTES % 16.3 % (18.0-39.1); MEAN CORPUSCULAR HEMOGLOBIN 30.9 pg (28-32); MEAN CORPUSCULAR HGB CONC 33.7 g/dL (31-35); MEAN CORPUSCULAR VOLUME 91.8 fL (81-99); MONOCYTES # (AUTO) 0.9 (0.2-0.8); MONOCYTES % 7.5 % (4.4-11.3); NEUTROPHILS # (AUTO) 9.4 (2.1-6.9); NEUTROPHILS % 75.6 % (38.7-80.0); PLATELET COUNT 200 x10e3/uL (140-360); RED BLOOD COUNT 4.04 x10e6/uL (3.6-5.1); RED CELL DISTRIBUTION WIDTH 13.1 % (11.7-14.4)
[2018-01-13] MEDS ORDERED: NITROGLYCERIN 2% OINT 1 GM PKT TOP ONE (19:45)
[2018-01-13] MEDS ORDERED: ASPIRIN 325 MG TAB PO ONE (19:45)
[2018-01-13 20:06] LABS: INR 0.89; PARTIAL THROMBOPLASTIN TIME 29.3 seconds (23.8-35.5); PROTHROMBIN TIME 12.9 seconds (11.9-14.5)
[2018-01-13 20:16] LABS: ALANINE AMINOTRANSFERASE 15 IU/L (0-55); ALBUMIN 3.7 g/dL (3.5-5.0); ALKALINE PHOSPHATASE 67 IU/L (40-150); ANION GAP 11.8 mmol/L (8-16); BLOOD UREA NITROGEN 19 mg/dL (7-26); BUN/CREATININE RATIO 24 (6-25); CARBON DIOXIDE 27 mmol/L (22-29); CHLORIDE 104 mmol/L (98-107); CREATINE KINASE 78 IU/L (29-168); CREATININE, SERUM 0.79 mg/dL (0.57-1.11); EST GLOMERULAR FILTRATION RATE > 60 ML/MIN (60-); GLUCOSE 89 mg/dL (74-118); POTASSIUM 3.8 mmol/L (3.5-5.1); SODIUM 139 mmol/L (136-145)
[2018-01-13] MEDS ORDERED: NATURE-THROID65 MG PO (20:24)
--- NOTE | 2018-01-13 20:39 | Diagnostic Imaging Report ---
EXAMINATION: CHEST SINGLE (PORTABLE) INDICATION: Chest and shoulder pain, cough 1 week. COMPARISON: None FINDINGS: AP view TUBES and LINES: None. LUNGS: Lungs are well inflated. Lungs are clear. There is no evidence of pneumonia or pulmonary edema. PLEURA: No pleural effusion or pneumothorax. HEART AND MEDIASTINUM: The cardiomediastinal silhouette is unremarkable. BONES AND SOFT TISSUES: No acute osseous lesion. Soft tissues are unremarkable. UPPER ABDOMEN: No free air under the diaphragm. IMPRESSION: No acute thoracic abnormality. Signed by: DR. Maximus Jerry MD on 01/13/2018 8:36 PM
[2018-01-13 21:05] LABS: BILIRUBIN,URINE NEGATIVE (NEGATIVE); CLARITY,URINE HAZY (CLEAR); COLOR,URINE YELLOW (YELLOW); KETONES,URINE NEGATIVE (NEGATIVE); LEUKOCYTE ESTERASE ,URINE NEGATIVE (NEGATIVE); NITRITE,URINE NEGATIVE (NEGATIVE); PROTEIN,URINE DIPSTICK NEGATIVE (NEGATIVE); URINE UROBILINOGEN 0.2 mg/dL (0.2 - 1)
[2018-01-13 21:09] LABS: AMORPHOUS SEDIMENT,URINE FEW (FEW); EPITHELIAL CELLS,URINE MODERATE /LPF
[2018-01-13] MEDS ORDERED: MORPHINE SULFATE 2 MG/ML SYR IV PRN (22:30)
[2018-01-13] MEDS ORDERED: ACETAMINOPHEN 325 MG TAB ONE (22:33)
[2018-01-13] MEDS ORDERED: ACETAMINOPHEN 325 MG TAB PO PRN (22:45)
--- OUTSIDE RECORDS SUMMARY | 2018-01-13 23:11 | XMS REPORT | Clinical Summary ---
Author Author [facility] Address Unknown Phone Unavailable Care Team Providers Care Refuse Laborer Name Role Phone Derrick Casarez HONING MACHINE OPERATOR TOOL-C PCP Allergies No Known Allergies Medications No [...] AETNA xxxxxxxx HMO MEDICARE HMO/PPO [facility] (Home) [place] [address] Advance Directives Patient has advance care planning documents on file. For more information, garcia connor contact: León Freeman [address] [place] [address]
--- OUTSIDE RECORDS SUMMARY | 2018-01-13 23:12 | XMS REPORT ---
Author Author [facility] Address Unknown Phone Unavailable Care Team Providers Care Logistics Coordinator Name Role Phone Fanny KHOURY Unavailable Unavailable Problems This patient has no known problems. Allergies, Adverse Reactions, Alerts This patient has no known allergies or adverse reactions. Medications This patient has no known medications. Results Test Description Test Time Test Comments Text Results Atomic Results Result Comments CHEST SINGLE (PORTABLE) 2018-01-13 20:34:00 [place] [address] Patient Name: PAMELA TRIPATHI MR #: [id number] : 1950 Age/Sex: 67/F Req #: [id number] Adm Physician: Ordered by: SALENA KHOURY MD Report #: [id number] Location: ER Room/Bed: Procedure: [id number] DX/CHEST SINGLE (PORTABLE) Exam Date: 01/13/18 Exam Time: 1950 REPORT STATUS: Signed EXAMINATION: CHEST SINGLE (PORTABLE) INDIC ATION: Chest and shoulder pain, cough 1 week. COMPARISON: None FINDINGS: AP view TUBES and LINES: None. LUNGS: Lungs are well inflated. Lungs are clear. There is no evidence of pneumonia or pulmonary edema. PLEURA: No pleural effusion or pneumothorax. HEART AND MEDIASTINUM: The cardiomediastinal silhouette is unremarkable. BONES AND SOFT TISSUES: No acute osseous lesion. Soft tissues are unremarkable. UPPER ABDOMEN: No free air under the diaphragm. IMPRESSION: No acute thoracic abnormality. Signed by: DR. Maximus Howell MD on 01/13/2018 8:36 PM Dictated By: MAXIMUS HOWELL MD 35 Transcribed By: AMBIKA on 01/13/182035 COPY TO: SALENA KHOURY MD
[2018-01-13 23:45] VITALS: BP 122/63
[2018-01-14 00:45] VITALS: BP 122/63
[2018-01-14 05:40] VITALS: BP 130/73
[2018-01-14] MEDS ORDERED: IBUPROFEN 600 MG TAB PO PRN (07:45)
[2018-01-14 07:58] LABS: CREATINE KINASE MB 1.2 ng/mL (0-5.0)
[2018-01-14 08:08] VITALS: BP 128/69
[2018-01-14 08:10] LABS: CHOL/HDL RATIO 3.1 (3.0-3.6)
[2018-01-14] MEDS ORDERED: ASPIRIN 81 MG ENTERIC COATED PO SCH (09:00)
[2018-01-14] MEDS ORDERED: ONDANSETRON HCL INJ 2 MG/ML VIAL IV PRN (09:00)
--- NOTE | 2018-01-14 10:42 | History and Physical ---
HISTORY AND PHYSICAL AND DISCHARGE SUMMARY DATE OF SERVICE: January 14, 2018 CHIEF COMPLAINT: Chest pain. HPI: This is a 67-year-old female with only known past medical history of hypothyroidism, who comes in to the ED with complaints of substernal chest pain while she was at work yesterday. She reports that it was left-sided substernal with pressure-like presentation with radiation to the left shoulder and arm. Denies any numbness, nausea, vomiting, or any other complaints. She denies any history of diabetes or hypertension or any family history of heart disease. She has never experienced anything like this before. Patient was seen and evaluated at bedside on the medical floor, currently doing well with no other complaints. She currently just complains of headache due to the Nitro paste. On arrival, she was found to have an elevated blood pressure. REVIEW OF SYSTEMS: Pertinent positive: Chest pain, headache. Pertinent negative: Denies any palpitation, nausea, vomiting, diarrhea, dysuria, hematuria, frequency, urgency, lightheadedness, dizziness, abdominal pain, shortness of breath, cough, congestion, fever, or any other complaints. The rest of a 14-point review of systems have been reviewed with the patient and are negative. ALLERGIES: NO KNOWN DRUG ALLERGIES. HOME MEDICATIONS: She takes thyroid natural 65 mg daily. PAST MEDICAL HISTORY: Hypothyroidism. PAST SURGICAL HISTORY: Reports none. FAMILY HISTORY: Hypertension and diabetes. SOCIAL HISTORY: No drugs. No alcohol. Does not smoke. Good social support. Continues to work. LAB FINDINGS: Show white count 12.3, hemoglobin 12.5, hematocrit 37.1, platelets of 200. Coagulation: PT 12.9, INR 0.89, PTT 20.13. Chemistry: Sodium 139, potassium 3.8, chloride 104, bicarb 27, anion gap 11, BUN 19, creatinine is 0.79, glucose is 89, total bilirubin is 0.4, AST 89, ALT 50, alk phos 87. Total protein is 7.3, albumin is 3.6, LDL is 121. CK is 78, CK-MB 2.2, troponin 0.015. Urinalysis is negative. MICROBIOLOGY: None. IMAGING STUDIES: Chest x-ray was negative. PHYSICAL EXAMINATION VITAL SIGNS: Temperature is 96.9, pulse 82, respiratory rate is 20, blood pressure 128/69, pulse ox 97% on room air. GENERAL: Not in acute distress, alert and oriented x3, cooperative on examination. HEENT: Head normocephalic, atraumatic. Eyes: Pupils are equal, round, and reactive to light bilaterally. Extraocular movements intact bilaterally. Throat: No evidence of any erythema or exudates in the posterior pharynx, has poor dentition. NECK: Supple with good range of motion. PULMONARY: Clear to auscultation bilaterally. No wheezing, no rales, no rhonchi, no crackles appreciated. CARDIOVASCULAR: Positive S1 and S2. No murmurs, rubs, or gallops appreciated. ABDOMEN: Soft, nondistended, nontender to palpation. Bowel sounds present. MUSCULOSKELETAL: Strength is 5/5 throughout. No evidence of any muscle deficit on examination. No weakness appreciated. NEUROLOGICAL: Cranial nerves II through XII are grossly intact. No evidence of any neurological deficits on exam. SKIN: Intact. Warm to touch. Good cap refill. PSYCHIATRIC: Normal affect and mood. EXTREMITIES: No edema. Good range of motion throughout. IMPRESSION 1. Chest pain, likely atypical in nature. 2. Hypertension. 3. Hypothyroidism. 4. Headaches. PLAN: At this time, the troponins has been negative. Cardiology has been consulted. Cardiac stress test has been ordered I believe from the ER and a 2D echo has been ordered as well. We will await and follow readings on that particular study. Continue with cardioprotective meds including statin and aspirin. We are going to remove the Nitro paste, which is likely causing the headaches. We are going to add her on lisinopril 20 mg daily and she will go home on lisinopril as well including a statin. Continue with pain control and antinausea medication. She is able to eat a heart-healthy diet once her procedures are done. Once cleared by cardiology, the patient is cleared to be discharged. I discussed this with the nursing staff. Job#: [id number] ADONIS
[2018-01-14 12:10] VITALS: BP 133/80
--- NOTE | 2018-01-14 15:05 | Consultation ---
DATE OF CONSULTATION: CARDIOLOGY CONSULTATION ATTENDING PHYSICIAN: Dr. Graf. CLINICAL HISTORY: This is a 67-year-old white woman, admitted via emergency room because of palpitations and left shoulder pain. This patient denies any previous symptoms similar to this. 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 She denies having any chest pains. She went to lay down, but the pain persisted for over an hour. She finally came to the emergency room where her blood pressure was elevated. Her initial heart rate was 99 beats per minute. She was admitted for further evaluation and treatment. Cardiac enzymes have been negative. PAST MEDICAL HISTORY: Remarkable for hypothyroidism, for which she takes 65 mg of Nature-Throid. FAMILY HISTORY: Father from motor vehicle accident. Mother had stroke, aortic and mitral valve replacement due to rheumatic fever, she after falling out of bed in correction. She has maternal aunts and uncles x4 with myocardial infarction or sudden . PERSONAL/SOCIAL HISTORY: Denies smoking, drinking, or drug abuse. 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 REVIEW OF SYSTEMS: Noncontributory. PHYSICAL EXAMINATION GENERAL: She is alert, coherent, appears to be comfortable. CARDIAC: Jugular veins are not distended. S1 and S2 are regular. There is 1/6 systolic murmur. There are bilateral carotid bruits, more on the right side. LUNGS: Clear. ABDOMEN: Soft. Bowel sounds are present. EXTREMITIES: Show no cyanosis, clubbing, or edema. LABORATORY STUDIES: Electrocardiogram showed no acute changes. The chest x-ray was negative. CBC and BMP were benign. INR was 0.89. IMPRESSION 1. Atypical prolonged palpitation associated with left shoulder pain, consider coronary artery disease and cardiac arrhythmia. Unfortunately, we have no documentation of significant arrhythmias by the time she arrived. 2. History of hypothyroidism, on Nature-Throid. 3. Extensive family history of coronary artery disease on the mother side. 4. Family history of diabetes (grandmother). 5. Heart murmur. 6. Bilateral carotid bruits versus radiated heart sound. RECOMMENDATIONS: Review echocardiogram. Consider Doppler scan of the carotid and stress testing. All this can be done on outpatient basis, but she essentially is asymptomatic at this point. She may want to withhold the thyroid medications for now particularly if her thyroid is normal. She may require future workup for cardiac arrhythmia if she continued to be symptomatic with palpitations. A trial of beta-brandee may also be reasonable. Job#: [id number] TERRENCE cc:DR. GRAF
[2018-01-14 16:02] LABS: FREE THYROXINE INDEX 1.8671 (1.4-3.8); THYROID STIMULATING HORMONE 0.251 uIU/mL (0.350-4.940)
--- NOTE | 2018-01-14 16:05 | Cardiology Report ---
DATE OF STUDY: ECHOCARDIOGRAM ATTENDING PHYSICIAN: Dr. Graf. M-MODE: Normal chamber sizes. Borderline left ventricular hypertrophy. Normal contractility. Normal mitral aortic valves. No pericardial effusion. SECTOR SCAN: Normal chamber sizes. Borderline left ventricular hypertrophy. Normal contractility. Normal mitral aortic and tricuspid valves. No pericardial effusion. CARDIAC DOPPLER STUDY WITH COLOR: Trace mitral tricuspid regurgitation. CONCLUSIONS 1. Trace mitral tricuspid regurgitation. 2. Borderline left ventricular hypertrophy with ejection fraction of approximately 65%. Job#: [id number] TERRENCE cc:DR. GRAF
[2018-01-14] MEDS ORDERED: ATORVASTATIN 20 MG TAB PO SCH (21:00)
== END 2018-01-14 17:05 | disposition home or self-care (01) ==
LOC: ER 19:17 → ERHOLD 23:09 → IMCU 01-14 00:35
PROVIDERS: ADMIT Internal Medicine; ATTEND Internal Medicine
DX: R07.89 Other chest pain (principal); I10 Essential (primary) hypertension; E03.9 Hypothyroidism, unspecified; R51 Headache; Z82.49 Family history of ischemic heart disease and other diseases of the circulatory system; Z83.3 Family history of diabetes mellitus; R01.1 Cardiac murmur, unspecified; R09.89 Other specified symptoms and signs involving the circulatory and respiratory systems; R31.29 Other microscopic hematuria
CPT/HCPCS: 36415 ×2; 71045; 80053; 80061; 81001; 82550 ×2; 82553 ×2; 84436; 84443; 84479; 84484 ×2; 85025; 85610; 85730; 93005; 93306; 99284; G0378 ×2

== ENCOUNTER 2021-02-27 16:52 | Emergency (ER) | payer MEDICARE, OTHER ==
[~2021-02-27] VITALS: Ht 162.6 cm; Wt 59.9 kg
[~2021-02-27 16:52] MED LIST: NATURE-THROID65 MG PO
[2021-02-27] MEDS ORDERED: Morphine 4mg Syringe 4 MG/ML INJ IV ONE (17:45)
[2021-02-27] MEDS ORDERED: ONDANSETRON HCL INJ 2MG/ML 2ML 2 MG/ML VIAL IV STA (17:45)
[2021-02-27] MEDS ORDERED: SODIUM CHLORIDE 0.9% 1000ML 1,000 ML IV ONE (17:45)
[2021-02-27 18:18] LABS: BASOPHILS % 0.2 % (0.0-1.0); HEMATOCRIT 37.6 % (34.2-44.1); HEMOGLOBIN 12.6 g/dL (12.0-16.0); LYMPHOCYTES # (AUTO) 0.6 (1.0-3.2); LYMPHOCYTES % 10.3 % (18.0-39.1); MEAN CORPUSCULAR HEMOGLOBIN 30.1 pg (28-32); MEAN CORPUSCULAR HGB CONC 33.5 g/dL (31-35); MEAN CORPUSCULAR VOLUME 89.7 fL (81-99); MONOCYTES # (AUTO) 0.9 (0.2-0.8); MONOCYTES % 16.3 % (4.4-11.3); NEUTROPHILS % 72.1 % (38.7-80.0); PLATELET COUNT 199 x10e3/uL (140-360); RED BLOOD COUNT 4.19 x10e6/uL (3.6-5.1); RED CELL DISTRIBUTION WIDTH 12.3 % (11.7-14.4)
[2021-02-27 18:36] LABS: ALBUMIN 3.9 g/dL (3.5-5.0); ANION GAP 18.8 mmol/L (8-16); CREATININE, SERUM 1.8 mg/dL (0.57-1.11); POTASSIUM 3.8 mmol/L (3.5-5.1)
[2021-02-27 18:37] LABS: AMYLASE 106 U/L (25-125); LIPASE 39 U/L (8-78)
[2021-02-27 18:45] LABS: CREATINE KINASE MB 3.4 ng/mL (0-5.0)
[2021-02-27 19:05] LABS: CLARITY,URINE CLEAR (CLEAR); COLOR,URINE STRAW (YELLOW); KETONES,URINE 2+ (NEGATIVE); LEUKOCYTE ESTERASE ,URINE NEGATIVE (NEGATIVE); NITRITE,URINE NEGATIVE (NEGATIVE); PROTEIN,URINE DIPSTICK 2+ (NEGATIVE); URINE UROBILINOGEN 0.2 mg/dL (0.2 - 1)
[2021-02-27] MEDS ORDERED: DIATRIZOATE MEGL/DIATRIZOA SOD 30 ML BTL PO ONE (19:14)
[2021-02-27 19:16] LABS: BACTERIA,URINE MANY /HPF; EPITHELIAL CELLS,URINE MANY /LPF; RBC,URINE 0-5 /HPF (0-5)
[2021-02-27] MEDS ORDERED: DEXTROSE 50% SYRINGE 50 ML IV STA (19:47)
[2021-02-27] MEDS ORDERED: DEXTROSE 50% SYRINGE 50 ML IV ONE (19:58)
[2021-02-27 23:18] VITALS: BP 144/77
== END 2021-02-27 23:32 | disposition home or self-care (01) ==
LOC: ER 18:01
DX: U07.1 COVID-19 (principal); R50.9 Fever, unspecified; R10.11 Right upper quadrant pain; I10 Essential (primary) hypertension; E03.9 Hypothyroidism, unspecified; R94.31 Abnormal electrocardiogram [ECG] [EKG]
CPT/HCPCS: 36415; 74176; 76705; 80053; 81001; 82150; 82550; 82553; 82948; 83690; 84484; 85025; 93005; 99284; J7799; U0002